=== PATIENT | male | born 1965 | race Caucasian/White ===

== ENCOUNTER 2021-12-16 22:32 | Emergency (ER) | payer MEDICAID ==
[~2021-12-16] VITALS: Ht 180 cm; Wt 91.0 kg
[2021-12-16 23:02] VITALS: BP_SYST 77; BP_SYST 90; BP_DIAS 59; BP_DIAS 60
[2021-12-16] MEDS ORDERED: NS IV 1000 ML 1,000 ML IV SCH (23:30)
--- NOTE | 2021-12-16 23:31 | ED General ---
General Chief Complaint: Cardiac/General Problems Stated Complaint: LOW BP 67/48 Nursing Triage Note: Pt states that he thinks that he got too hot today and started feeling dizzy. His pressure was 60's systolic and he took a nitro sl 0.4mg. rechecked his pressure after and it was still 60's systolic. This has been ongoing since 1400. Source of Information: Patient, Family () Exam Limitations: No Limitations History of Present Illness Date Seen by Provider: Dec 16, 2021 Time Seen by Provider: 23:16 Initial Comments Patient is a 56-year-old male who presents to the emergency department today with a chief complaint of feeling lightheaded, dizzy while driving this evening. Patient reports that he has been working outside most of the day on a piece of furniture. He took frequent breaks throughout the day but did work outside most of the day. He drinks 1 energy drink diluted with a little bit of water. He had a couple of other bottles of water. He denies any recent illnesses such as fevers, chills, cough or congestion. No chest pain. No nausea, vomiting or d iarrhea. No urinary complaints. He has a history of coronary artery disease status post stent about 5 years ago in the " maker". He does have a pacemaker from about 6 or 7 years ago. It sounds like he had a history of complete heart block. He is 100% paced. He sees doctors in [facility]. He states his took his blood pressure 2 or 3 times at home when he was feeling bad and they kept getting mid 60s systolic blood pressures at home. He states at that time (around 10:00 this evening) he decided to take a sublingual nitro. He continued to feel bad and finally decided to come to the ER. At no time did he have chest pressure, pain, tightness or heaviness. He continues to feel asymptomatic. I had the nurse attempt to do orthostatic vital signs prior to me seeing him. Laying in the bed he is 96 systolic when he sat up in the bed he dropped to 77 systolic. She did not stand him. All other review of systems reviewed and negative except as stated. Timing/Duration: 1-3 Hours Severity: Moderate Associated Systoms: Other (dizzy) Allergies and Home Medications Allergies Coded Allergies: Penicillins (Verified Allergy, Mild, Nausea, 12/16/21) Patient Home Medication List Home Medication List Reviewed: Yes Atorvastatin Calcium (Atorvastatin Calcium) 40 Mg Tablet, 40 MG PO HS, (Reported) Entered as Reported by: Isadora Heart on 12/17/2125 Last Action: New Order Carvedilol (Carvedilol) 3.125 Mg Tablet, 3.125 MG PO BID, (Reported) Entered as Reported by: Isadora Heart on 12/17/2125 Last Action: New Order Diclofenac Sodium (Diclofenac Sodium) 1 % Gel..gram., 100 GM TP, (Reported) Entered as Reported by: Isadora Heart on 12/17/2125 Last Action: New Order Empaglifloz/Linaglip/Metformin (Trijardy Xr 25-5-1,000 mg Tab) 25 Mg-5 Mg-1,000 Mg Tab.bp.24h, 1 EACH PO, (Reported) Entered as Reported by: Isadora Heart on 12/17/2125 Last Action: New Order Gabapentin (Gabapentin) 100 Mg Capsule, 100 MG PO Q8H, (Reported) Entered as Reported by: Isadora Heart on 12/17/2125 Last Action: New Order Lisinopril (Lisinopril) 5 Mg Tablet, 5 MG PO DAILY, (Reported) Entered as Reported by: Isadora Heart on 12/17/2125 Last Action: New Order Semaglutide (Ozempic) 0.25 Mg/0.2 Ml Pen.injctr, 0.25 MG SQ, (Reported) Entered as Reported by: Isadora Heart on 12/17/2125 Last Action: New Order Silver Sulfadiazine (Ssd) 1 % Cream..g., 25 GM TP, (Reported) Entered as Reported by: Isadora Heart on 12/17/2125 Last Action: New Order Spironolactone (Spironolactone) 25 Mg Tablet, 25 MG PO, (Reported) Entered as Reported by: Isadora Heart on 12/17/2125 Last Action: New Order Tramadol HCl (Tramadol HCl) 50 Mg Tablet, 50 MG PO DAILY PRN, (Reported) Entered as Reported by: Isadora Heart on 12/17/2125 Last Action: New Order Review of Systems Review of Systems Constitutional: see HPI EENTM: no symptoms reported Respiratory: no symptoms reported Cardiovascular: no symptoms reported Gastrointestinal: no symptoms reported Genitourinary: no symptoms reported Musculoskeletal: other (chronic mild LE swelling) Psychiatric/Neurological: Other (dizziness) All Other Systems Reviewed Negative Unless Noted: Yes Past Jjqsgcu-Iqbccl-Yszpnh Hx Patient Social History Tobacco Use?: No Use of E-Cig and/or Vaping dev: No Substance use?: Yes Substance type: Caffeine Additional substance use comme: drinks sugar free monsters and sugar free rip it, typically drinks 1-2/day Substance frequency: Daily Alcohol Use?: No Pt feels they are or have been: No Immunizations Up To Date Influenza Vaccine Up-to-Date: Yes; Up-to-Date Physical Exam Vital Signs Vital Signs - First Documented 12/16/21 22:36 Temp 36.0 Pulse 89 Resp 14 B/P (MAP) 91/65 (74) Pulse Ox 97 O2 Delivery Room Air Capillary Refill : Less Than 3 Seconds Height, Weight, BMI Height: '" Weight: lbs. oz. kg; 28.00 BMI Method: General Appearance: No Apparent Distress, WD/WN Eyes: Bilateral Eye Normal Inspection, Bilateral Eye PERRL, Bilateral Eye EOMI HEENT: PERRL/EOMI, Pharynx Normal, Moist Mucous Membranes Neck: Normal Inspection Respiratory: Lungs Clear, Normal Breath Sounds, No Accessory Muscle Use, No Respiratory Distress Cardiovascular: Regular Rate, Rhythm, Normal Peripheral Pulses Gastrointestinal: Normal Bowel Sounds, No Organomegaly, Non Tender, Soft Extremity: Normal Capillary Refill, Normal Inspection, Normal Range of Motion, Non Tender, No Calf Tenderness, Other (mild 1+ pitting edema Derian LE) Neurologic/Psychiatric: Alert, Oriented x3, No Motor/Sensory Deficits, Normal Mood/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, 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 Norm as Tested Skin: Normal Color, Warm/Dry Progress/Results/Core Measures Suspected Sepsis SIRS Temperature: Pulse: 93 Respiratory Rate: 14 Laboratory Tests 12/16/21 22:56: White Blood Count 7.5 Blood Pressure 77 /59 Mean: 65 Laboratory Tests 12/16/21 22:56: Creatinine 2.70H, Platelet Count 214 Results/Orders Lab Results Laboratory Tests Test 12/16/21 22:56 12/17/21 00:14 Range/Units White Blood Count 7.5 4.3-11.0 10^3/uL Red Blood Count 4.41 4.30-5.52 10^6/uL Hemoglobin 13.1 L 13.3-17.7 g/dL Hematocrit 40 40-54 % Mean Corpuscular Volume 90 80-99 fL Mean Corpuscular Hemoglobin 30 25-34 pg Mean Corpuscular Hemoglobin Concent 33 32-36 g/dL Red Cell Distribution Width 13.8 10.0-14.5 % Platelet Count 214 130-400 10^3/uL Mean Platelet Volume 11.1 9.0-12.2 fL Immature Granulocyte % (Auto) 0 % Neutrophils (%) (Auto) 66 42-75 % Lymphocytes (%) (Auto) 24 12-44 % Monocytes (%) (Auto) 7 0-12 % Eosinophils (%) (Auto) 2 0-10 % Basophils (%) (Auto) 1 0-10 % Neutrophils # (Auto) 5.0 1.8-7.8 10^3/uL Lymphocytes # (Auto) 1.8 1.0-4.0 10^3/uL Monocytes # (Auto) 0.5 0.0-1.0 10^3/uL Eosinophils # (Auto) 0.1 0.0-0.3 10^3/uL Basophils # (Auto) 0.1 0.0-0.1 10^3/uL Immature Granulocyte # (Auto) 0.0 0.0-0.1 10^3/uL Sodium Level 138 135-145 MMOL/L Potassium Level 4.0 3.6-5.0 MMOL/L Chloride Level 101 98-107 MMOL/L Carbon Dioxide Level 23 21-32 MMOL/L Anion Gap 14 5-14 MMOL/L Blood Urea Nitrogen 37 H 7-18 MG/DL Creatinine 2.70 H 0.60-1.30 MG/DL Estimat Glomerular Filtration Rate 27 BUN/Creatinine Ratio 14 Glucose Level 133 H 70-105 MG/DL Calcium Level 9.4 8.5-10.1 MG/DL SARS-CoV-2 RNA (RT-PCR) Not Detected Not Detecte My Orders Orders - FRANCISCO BLUM MD Orthostatic Vital Signs (Adult (12/16/21 23:02) Ekg Tracing (12/16/21 23:07) Ed Iv/Invasive Line Start (12/16/21 23:26) Cbc With Automated Diff (12/16/21 23:26) Basic Metabolic Panel (12/16/21 23:26) Ns Iv 1000 Ml (Sodium Chloride 0.9%) (12/16/21 23:30) Covid 19 Inhouse Test (12/17/21 00:22) Chest 1 View, Ap/Pa Only (12/17/21 00:22) Isolation Central Supply Req (12/17/21 00:22) Ns Iv 500 Ml (Sodium Chloride 0.9%) (12/17/21 00:45) Vital Signs/I&O 12/16/21 12/16/21 22:36 23:02 Temp 36.0 Pulse 89 90 93 Resp 14 B/P (MAP) 91/65 (74) 90/60 (70) 77/59 (65) Pulse Ox 97 O2 Delivery Room Air Capillary Refill : Less Than 3 Seconds Blood Pressure Mean: 65 Progress Note : Time: 01:07 Progress Note Patient is resting comfortably, labs reviewed, he has some modest increase in his serum creatinine at 2.7. He is clinically dehydrated. This creatinine is likely reflective of that. reports that his last general medical exam was 3 to 4 months ago and he had "normal" labs at that time as far she knew. She has never been told that he has a history of chronic kidney disease. His blood pressure is up to about 110 systolic. We are taking him off the oxygen that he had been put on for sats running about 87%. He demonstrates no increased work of breathing. His chest x-ray is clear. He is not ill. His COVID is negative. Anticipate discharge to home with close follow-up with his primary care physician. Return precautions discussed. ECG Initial ECG Impression Date: Dec 16, 2021 Initial ECG Impression Time: 23:12 Initial ECG Rate: 89 Initial ECG Rhythm: Normal Sinus Comment Normal sinus ventricular paced rhythm Diagnostic Imaging Diagonstic Imaging: Xray Plain Films/CT/US/NM/MRI: chest Comments Chest x-rayinterpreted by merry effusion, infiltrate, normal mediastinal structures. Departure Impression Primary Impression: Dehydration Disposition: 01 HOME, SELF-CARE Condition: Improved Departure-Patient Inst. Decision time for Depature: 01:08 Referrals: NO,LOCAL PHYSICIAN (PCP/Family) Primary Care Physician Patient Instructions: Dehydration, Adult ED Add. Discharge Instructions: Drink plenty of fluids to stay well-hydrated. Your urine should be clear yellow. Continue your daily medications as prescribed by your primary care doctor. Avoid energy drinks. Please call your primary care doctor's office on Sunday for a follow-up appointment early next week. Return to the emergency department for any new, concerning or emergent complaints. Do not take nitroglycerin if your blood pressure, the top number, is below 100. FRANCISCO BLUM MD Dec 16, 2021 23:31
[2021-12-16 23:32] LABS: BASOPHILS # (AUTO) 0.1 10^3/uL (0.0-0.1); BASOPHILS % (AUTO) 1 % (0-10); EOSINOPHILS # (AUTO) 0.1 10^3/uL (0.0-0.3); EOSINOPHILS % (AUTO) 2 % (0-10); HEMATOCRIT 40 % (40-54); HEMOGLOBIN 13.1 g/dL (13.3-17.7); LYMPHOCYTES # (AUTO) 1.8 10^3/uL (1.0-4.0); LYMPHOCYTES % (AUTO) 24 % (12-44); MEAN CORPUSCULAR HEMOGLOBIN 30 pg (25-34); MEAN CORPUSCULAR HGB CONC 33 g/dL (32-36); MEAN CORPUSCULAR VOLUME 90 fL (80-99); MEAN PLATELET VOLUME 11.1 fL (9.0-12.2); MONOCYTES # (AUTO) 0.5 10^3/uL (0.0-1.0); MONOCYTES % (AUTO) 7 % (0-12); NEUTROPHILS % (AUTO) 66 % (42-75); PLATELET COUNT 214 10^3/uL (130-400); WHITE BLOOD COUNT 7.5 10^3/uL (4.3-11.0)
[2021-12-16 23:39] LABS: CALCIUM 9.4 MG/DL (8.5-10.1)
[2021-12-16 23:43] LABS: CREATININE SERUM 2.7 MG/DL (0.60-1.30)
[2021-12-17] MEDS ORDERED: CARV3.122 PO (00:26)
[2021-12-17] MEDS ORDERED: SILV25CR21 TP (00:26)
[2021-12-17] MEDS ORDERED: LISI5TAB20 PO (00:26)
[2021-12-17] MEDS ORDERED: GABA-486 PO (00:26)
[2021-12-17] MEDS ORDERED: DICL100G13 TP (00:26)
[2021-12-17] MEDS ORDERED: TRAM50TA3 PO (00:26)
[2021-12-17] MEDS ORDERED: EMPA1TAB34 PO (00:26)
[2021-12-17] MEDS ORDERED: SPIR25TA5 PO (00:26)
[2021-12-17] MEDS ORDERED: SEMA0.25 SQ (00:26)
[2021-12-17] MEDS ORDERED: ATOR40TA70 PO (00:26)
[2021-12-17] MEDS ORDERED: NS IV 500 ML 500 ML IV SCH (00:45)
[2021-12-17 01:39] VITALS: BP 118/78
--- NOTE | 2021-12-17 07:08 | Diagnostic Imaging Report ---
INDICATION: Hypoxia. TECHNIQUE: Single view chest 1:01 AM. CORRELATION STUDY: None FINDINGS: Left-sided dual-chamber pacemaker. Heart size is borderline enlarged. Vasculature is within normal limits given technique. No definitive consolidating infiltrate. Very questionable small nodule lateral right mid lung field. IMPRESSION: 1. Borderline heart size without overt failure. 2. Questionable small nodule lateral right mid lung. Short-term followup two-view chest imaging is recommended for reassessment. 3. The report was called and faxed to the Dr. Bunch by [email or web address]@7:06 AM. Dictated by: Dictated on workstation # [id number]
== END 2021-12-17 01:39 | disposition home or self-care (01) ==
LOC: ER 22:35
DX: E86.0 Dehydration (principal); I10 Essential (primary) hypertension; R94.4 Abnormal results of kidney function studies; Z20.822 Contact with and (suspected) exposure to COVID-19
CPT/HCPCS: 36415; 71045; 80048; 85025; 87636; 93005

== ENCOUNTER 2022-02-14 08:40 | Emergency (ER) | payer MEDICAID ==
[~2022-02-14] VITALS: Ht 180 cm; Wt 91.0 kg
[~2022-02-14 08:40] MED LIST: ATOR40TA70 PO; CARV3.122 PO; DICL100G13 TP; EMPA1TAB34 PO; GABA-486 PO; LISI5TAB20 PO; SEMA0.25 SQ; SILV25CR21 TP; SPIR25TA5 PO; TRAM50TA3 PO
[2022-02-14] MEDS ORDERED: ONDA4TAB11 PO (09:23)
--- NOTE | 2022-02-14 09:24 | ED Cough/URI ---
General Chief Complaint: COVID19 Suspect/Confirmed Stated Complaint: COUGH, BODY ACHE, CONGESTED Nursing Triage Note: PT AMB TO RM 10 PT CO OF COVID SX. PT HAS HAD COUGH, CONGESTION, FATIGUE SINCE SUNDAY. PT DENIES FEVERS. WANTS TO BE COVID TESTED Source: patient Exam Limitations: no limitations History of Present Illness Date Seen by Provider: Feb 14, 2022 Time Seen by Provider: 08:59 Initial Comments Patient to the ER by private conveyance with his significant other chief complaint is had a couple days of cough, congestion, nasal congestion, fatigue since Sunday, 2 days ago. He has a history of heart disease with a stent, pacemaker, EF of 55% and no history of kidney stones, kidney disease or urinary symptoms. Allergies and Home Medications Allergies Coded Allergies: Penicillins (Verified Allergy, Mild, Nausea, 12/16/21) Patient Home Medication List Home Medication List Reviewed: Yes Atorvastatin Calcium (Atorvastatin Calcium) 40 Mg Tablet, 40 MG PO HS, (Reported) Entered as Reported by: Isadora Heart on 12/17/2125 Carvedilol (Carvedilol) 3.125 Mg Tablet, 3.125 MG PO BID, (Reported) Entered as Reported by: Isadora Heart on 12/17/2125 Diclofenac Sodium (Diclofenac Sodium) 1 % Gel..gram., 100 GM TP, (Reported) Entered as Reported by: Isadora Heart on 12/17/2125 Empaglifloz/Linaglip/Metformin (Trijardy Xr 25-5-1,000 mg Tab) 25 Mg-5 Mg-1,000 Mg Tab.bp.24h, 1 EACH PO, (Reported) Entered as Reported by: Isadora Heart on 12/17/2125 Gabapentin (Gabapentin) 100 Mg Capsule, 100 MG PO Q8H, (Reported) Entered as Reported by: Isadora Heart on 12/17/2125 Lisinopril (Lisinopril) 5 Mg Tablet, 5 MG PO DAILY, (Reported) Entered as Reported by: Isadora Heart on 12/17/2125 Ondansetron (Ondansetron Odt) 4 Mg Tab.rapdis, 4 MG PO Q6H PRN for NAUSEA/VOMI TING Prescribed by: JACKI AHUJA on 02/14/2223 Semaglutide (Ozempic) 0.25 Mg/0.2 Ml Pen.injctr, 0.25 MG SQ, (Reported) Entered as Reported by: Isadora Heart on 12/17/2125 Silver Sulfadiazine (Ssd) 1 % Cream..g., 25 GM TP, (Reported) Entered as Reported by: Isadora Heart on 12/17/2125 Spironolactone (Spironolactone) 25 Mg Tablet, 25 MG PO, (Reported) Entered as Reported by: Isadora Heart on 12/17/2125 Tramadol HCl (Tramadol HCl) 50 Mg Tablet, 50 MG PO DAILY PRN, (Reported) Entered as Reported by: Isadora Heart on 12/17/2125 Review of Systems Review of Systems Constitutional: No chills, No fever EENTM: No ear discharge, No ear pain Respiratory: see HPI, cough; No short of breath Cardiovascular: No chest pain, No edema Gastrointestinal: No abdominal pain Musculoskeletal: No back pain, No joint pain All Other Systems Reviewed Negative Unless Noted: Yes Past Zhuozqi-Ovxpmp-Lhrfsd Hx Patient Social History Tobacco Use?: No Smoking Status: Former Smoker Substance use?: No Alcohol Use?: No Pt feels they are or have been: No Immunizations Up To Date Influenza Vaccine Up-to-Date: Yes; Up-to-Date First/Initial COVID19 Vaccinat: 2020 Second COVID19 Vaccination Kishore: 2020 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 oz. kg; 28.00 BMI Method: General Appearance: WD/WN, no apparent distress Eyes: Bilateral Eye Normal Inspection, Bilateral Eye PERRL, Bilateral Eye EOMI HEENT: PERRL/EOMI, normal ENT inspection, pharynx normal Neck: full range of motion, supple, normal inspection Respiratory: lungs clear, normal breath sounds, no respiratory distress, no accessory muscle use Cardiovascular: normal peripheral pulses, regular rate, rhythm Gastrointestinal: normal bowel sounds, non tender, soft Neurologic/Psychiatric: alert, normal mood/affect, oriented x 3 Skin: normal color, warm/dry Progress/Results/Core Measures Suspected Sepsis SIRS Temperature: Pulse: 80 Respiratory Rate: 18 Blood Pressure 154 /95 Mean: 114 Results/Orders Lab Results Laboratory Tests Test 02/14/22 08:51 Range/Units Influenza Type A (RT-PCR) Not Detected Not Detecte Influenza Type B (RT-PCR) Not Detected Not Detecte SARS-CoV-2 RNA (RT-PCR) Detected H Not Detecte My Orders Orders - JACKI AHUJA Covid 19 Inhouse Test (02/14/22 08:49) Influenza A And B By Pcr (02/14/22 08:49) Rx-Nirmatrelvir/Ritonavir(Eua) (Rx-Paxlo (02/14/22 09:30) Vital Signs/I&O 02/14/22 08:45 Temp 36.8 Pulse 80 Resp 18 B/P (MAP) 154/95 (114) Capillary Refill : Less Than 3 Seconds Blood Pressure Mean: 114 Progress Note : Time: 09:22 Progress Note We will set him up with a Dosepak of Paxlovid. He has a septic vital signs and not requiring any supplemental oxygen. Patient okay with this plan. Departure Impression Primary Impression: COVID-19 Disposition: 01 HOME, SELF-CARE Condition: Stable Departure-Patient Inst. Decision time for Depature: 09:22 Referrals: NO,LOCAL PHYSICIAN (PCP/Family) Primary Care Physician Patient Instructions: COVID-19 (DC) Add. Discharge Instructions: Drink plenty of fluids, use Tylenol 1000 mg every 8 hours as needed for fever, body aches or chills. Take the Paxlovid twice a day as directed for the next 5 days to reduce severity and length of symptoms. Ondansetron 1 tablet every 6 hours as needed for nausea and/or vomiting. Tessalon Perles 1 capsule every 6 hours as needed for coughing. Get plenty of rest. Return to the ER for significantly worsening shortness of air especially with oxygen saturations below 90% while at rest or chest pain. All discharge instructions reviewed with patient and/or family. Voiced understanding. Scripts Benzonatate (TESSALON PERLES) 100 Mg Capsule 100 MG PO Q6H PRN for COUGH, #30 CAP 0 Refills Prov: JACKI AHUJA 02/14/22 Ondansetron (Ondansetron Odt) 4 Mg Tab.rapdis 4 MG PO Q6H PRN for NAUSEA/VOMITING, #8 TAB 0 Refills Prov: JACKI AHUJA 02/14/22 Work/School Note: Work Release Form Date Seen in the Emergency Department: Feb 14, 2022 Return to Work: Feb 19, 2022 Restrictions: Return-No Fever (24hrs) JACKI AHUJA Feb 14, 2022 09:24
[2022-02-14] MEDS ORDERED: BENZ100C18 PO (09:25)
[2022-02-14] MEDS ORDERED: RX-NIRMATRELVIR/RITONAVIR (PAXLOVID) #30 TABS PO ONE (09:30)
[2022-02-14 09:33] VITALS: BP 154/95
== END 2022-02-14 09:33 | disposition home or self-care (01) ==
LOC: EDUNIT# 08:40 → ER 08:44
DX: U07.1 COVID-19 (principal); Z87.891 Personal history of nicotine dependence
CPT/HCPCS: 87636; 99283